=== PATIENT | male | born 1945 | race Caucasian/White ===

== ENCOUNTER 2017-04-29 10:44 | Observation (INO) | payer OTHER ==
--- NOTE | 2017-04-29 11:12 | CPEKG ---
Heart Rate: 61 RR Interval: 984 P-R Interval: 232 QRSD Interval: 94 QT Interval: 444 QTC Interval: 448 P [place]: 1 QRS [place]: -5 T Wave [place]: -2 EKG Severity - ABNORMAL ECG - EKG Impression: SINUS RHYTHM EKG Impression: FIRST DEGREE AV BLOCK EKG Impression: LVH BY VOLTAGE EKG Impression: BORDERLINE T ABNORMALITIES, INFERIOR LEADS Electronically Signed By: Dl Mota 29-Apr-2017 15:23:51
[2017-04-29 12:24] LABS: PLATELET COUNT 159 10^3/uL (150-400)
--- NOTE | 2017-04-29 12:35 | EDPHY ---
H & P Stated Complaint: R sided CP on waking; worse w/movemnet;shoveled snow yesterday Time Seen by Provider: 04/29/17 12:27 - Personal History Current Tetanus Diphtheria and Acellular Pertussis (TDAP): Yes Tetanus Vaccine Date: 2013 - Medical/Surgical History Hx Asthma: No Hx Chronic Respiratory Disease: No Hx Diabetes: No Hx Cardiac Disease: Yes Hx Renal Disease: No Hx Cirrhosis: No Hx Alcoholism: No Hx HIV/AIDS: No Hx Splenectomy or Spleen Trauma: No Other PMH: PMH: HTN,STENT X2,. 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 - Social History Smoking Status: Former smoker Constitutional: Initial Vital Signs Temperature (C) 36.5 C 04/29/17 10:47 Heart Rate 69 04/29/17 10:47 Respiratory Rate 18 04/29/17 10:47 Blood Pressure 110/70 04/29/17 10:47 O2 Sat (%) 97 04/29/17 10:47 O2 Delivery Mode Room Air Allergies/Adverse Reactions: No Known Allergies Allergy (Verified 04/29/17 10:46) Home Medications: Medication Instructions Recorded Aspirin EC [Aspirin EC 81 mg (*)] 81 mg PO DAILY 04/29/17 Metoprolol Succinate Xr [Toprol Xl 50 mg PO DAILY 04/29/17 50 mg (*)] Niacin 1,000 mg PO 04/29/17 Omeprazole Magnesium [Prilosec Otc] 04/29/17 Simvastatin [Zocor] 20 mg PO 04/29/17 metFORMIN HCL [Glucophage 500 mg 500 mg PO 04/29/17 (*)] Medical Decision Making ED Course/Re-evaluation: CHIEF COMPLAINT: Right-sided chest pressure HISTORY OF PRESENT ILLNESS: 71-year-old gentleman with history of 2 or 3 stents he is not sure. His for stenting was several years ago in [place] 2nd procedure was here with Dr. Valdovinos a couple years ago. Both of those times he presented with chest pressure and has similar fashion to today. Yesterday he was shoveling some snow and he feels like the pressure today is a little more related to movement however he did take a couple of nitro which she never uses and it did help resolve some of the pain. Additionally, he denies any shortness of breath nausea vomiting or lightheadedness. He denies any near syncope. This pressure occurred while he was driving at rest. His is quite concerned since he never takes nitro except when he needed the prior catheterizations. REVIEW OF SYSTEMS: A 10 point review of systems was performed and is negative with the exception of the elements mentioned in the history of present illness. PHYSICAL EXAM: HR, BP, O2 Sat, RR. Temp noted General Appearance: Alert, well hydrated, appropriate, and non-toxic appearing. Head: Atraumatic without scalp tenderness or obvious injury Eyes: Pupils equal, round, reactive to light and accommodation, EOMI, no trauma , no injection. Ears: Clear bilaterally, no perforation, normal landmarks Nose: Atraumatic, no rhinorrhea, clear. Throat: There is no erythema or exudates, no lesions, normal tonsils, mucus membranes moist. Neck: Supple, 2+ carotid upstroke, nontender, no lymphadenopathy. Respiratory: No retractions, no distress, no wheezes, and no accessory muscle use. Lungs are clear to auscultation bilaterally. Cardiovascular: Regular rate and rhythm, no murmurs, rubs, or gallops. Bilateral carotid, radial, dorsalis pedis, and posterior tibial pulses intact. Good capillary refill all extremities. Gastrointestinal: Abdomen is soft, nontender, non-distended, no masses, no rebound, no guarding, no peritoneal signs. Musculoskeletal: Normal active ROM of all extremities, atraumatic. Neurological: Alert, appropriate, and interactive. The patient has normal DTRs and non-focal cranial nerves, motor, sensory, and cerebellar exam. Skin: No rashes, good turgor, no nodules on palpation. Past medical history: Coronary artery disease, hypertension Past surgical history: 2 or 3 stents Family history: Coronary artery disease Social history: , retired, does not abuse tobacco drugs or alcohol DIAGNOSTICS/PROCEDURES/CRITICAL CARE TIME: The 12 lead EKG was interpreted by myself. See hard copy and/or "tracemaster" electronic copy for interpretation. Sinus rhythm with a first-degree AV block but no evidence of any significant ischemia. He does have some inverted T- waves in the inferior leads and I am ascertaining whether not that is new or old. DIFFERENTIAL DIAGNOSIS: The differential diagnosis for the patient's chest pain included but was not limited to [myocardial ischemia, pulmonary embolus, chest wall pain, pleural inflammation, and pulmonary infectious causes.] MEDICAL DECISION MAKING: Although this patient seems to be able to somewhat reproduces right-sided chest pressure with movement and he was shoveling snow yesterday both the patient, his , and myself were concerned because his prior to stenting procedures presented in a similar fashion with chest pressure like this. He also developed pressure today while at rest. Nitroglycerin resolved the pain. Laboratory studies are pending, chest x-ray pending, EKG shows some inferior Q-waves and T-wave abnormalities in waiting for old EKG. I will admit him to the hospitalist PCU for further evaluation by [facility]. - Data Points Laboratory Results: Laboratory Results 04/29/17 12:04/29/17 12:04/29/17 04/29/17 04/29/17 12: 12: 12:01 WBC 8.15 10^3/uL 10^3/uL (3.80-9.50) RBC 4.84 10^6/uL 10^6/uL (4.40-6.38) Hgb 16.6 g/dL g/dL (13.7-17.5) Hct 45.9 % % (40.0-51.0) MCV 94.8 fL fL (81.5-99.8) MCH 34.3 pg H pg (27.9-34.1) MCHC 36.2 g/dL g/dL (32.4-36.7) RDW 13.2 % % (11.5-15.2) Plt Count 159 10^3/uL 10^3/uL (150-400) MPV 10.5 fL fL (8.7-11.7) Neut % (Auto) 60.3 % % (39.3-74.2) Lymph % (Auto) 26.6 % % (15.0-45.0) Harper % (Auto) 9.0 % % (4.5-13.0) Eos % (Auto) 3.3 % % (0.6-7.6) Baso % (Auto) 0.6 % % (0.3-1.7) Nucleat RBC Rel Count 0.0 % % (0.0-0.2) Absolute Neuts (auto) 4.91 10^3/uL 10^3/uL (1.70-6.50) Absolute Lymphs (auto) 2.17 10^3/uL 10^3/uL (1.00-3.00) Absolute Monos (auto) 0.73 10^3/uL 10^3/uL (0.30-0.80) Absolute Eos (auto) 0.27 10^3/uL 10^3/uL (0.03-0.40) Absolute Basos (auto) 0.05 10^3/uL 10^3/uL (0.02-0.10) Absolute Nucleated RBC 0.00 10^3/uL 10^3/uL (0-0.01) Immature Gran % 0.2 % % (0.0-1.1) Immature Gran # 0.02 10^3/uL 10^3/uL (0.00-0.10) D-Dimer Pending Sodium 142 mEq/L mEq/L (135-145) Potassium 4.3 mEq/L mEq/L (3.5-5.2) Chloride 105 mEq/L mEq/L (97-110) Carbon Dioxide 24 mEq/l mEq/l (22-31) Anion Gap 13 mEq/L mEq/L (8-16) BUN 19 mg/dL mg/dL (7-23) Creatinine 1.1 mg/dL mg/dL (0.7-1.3) Estimated GFR > 60 Glucose 104 mg/dL H mg/dL (70-100) Calcium 9.8 mg/dL mg/dL (8.5-10.4) Total Bilirubin 0.7 mg/dL mg/dL (0.1-1.4) AST 33 IU/L IU/L (17-59) ALT 41 IU/L IU/L (21-72) Alkaline Phosphatase 66 IU/L IU/L (38-126) Troponin I Pending NT-Pro-B Natriuret Pep Pending Total Protein 6.8 g/dL g/dL (6.3-8.2) Albumin 4.3 g/dL g/dL (3.5-5.0) Departure - Departure Disposition: [facility] Inpatient Acute Clinical Impression: Acute coronary syndrome Condition: Fair Referrals: Unknown,Unknown [Unknown] - As per Instructions
[2017-04-29] MEDS ORDERED: ONDANSETRON 4 MG/2 ML VIAL IVP PRN (15:01)
[2017-04-29] MEDS ORDERED: ACETAMINOPHEN 325 MG TAB PO PRN (15:01)
[2017-04-29] MEDS ORDERED: ONDANSETRON DISINTEGRATING 4 MG TAB PO PRN (15:01)
--- NOTE | 2017-04-29 16:49 | PDGENHP ---
History and Physical - Chief Complaint Acute chest pain - History of Present Illness Senior Analytical Chemist: Dr. Isai Valdovinos HPI: 71 yo M p/w acute chest pain characterized as similar to his prior anginal pain, located in right chest, w/ onset on the AM of presentation, occurring at rest while driving. Duration has been persistent thereafter, exacerbated by movement (RUE) and positional, and mildly alleviated by 2 SLN as well as palpation of the R pectoralis. On the day prior to presentation, he was shoveling his driveway and did have some associated shortness of breath, but no overt chest pain. His SOB resolved w/ rest. He regularly get chest pain exertionally w/ racquet ball, and he plays through it, with it resolving while he continues to exercise. He took his home Rx on day of presentation. History Information - Allergies/Home Medication List Allergies/Adverse Reactions: No Known Allergies Allergy (Verified 04/29/17 10:46) Home Medications: Aspirin EC [Aspirin EC 81 mg (*)] 81 mg PO DAILY 04/29/17 [Last Taken 04/28/17] Atorvastatin Calcium [Lipitor 20 mg (*)] 20 mg PO HS 04/29/17 [Last Taken ] Cyanocobalamin [Vitamin B12 (*)] 1,000 mcg PO DAILY 04/29/17 [Last Taken Unknown ] Herbals/Supplements -Info Only 1 ea PO DAILY 04/29/17 [Last Taken 04/29/17] Isosorbide Mononitrate [Imdur 30 mg (*)] 30 mg PO DAILY 04/29/17 [Last Taken ] Metoprolol Succinate Xr [Toprol Xl 50 mg (*)] 50 mg PO BID 04/29/17 [Last Taken 04/29/17] Multivitamins [Multivitamin (*)] 1 each PO DAILY 04/29/17 [Last Taken 04/29/17] Niacin 1,000 mg PO HS 04/29/17 [Last Taken 04/28/17] Omeprazole Magnesium [Prilosec Otc] 20 mg PO HS 04/29/17 [Last Taken 04/28/17] Psyllium Husk (with Sugar) [Metamucil Packet] 3 each PO HS 04/29/17 [Last Taken 04/28/17] Vit A/Vit C/Vit E/Zinc/Copper [Preservision Areds Softgel] 1 each PO BID [Last Taken 04/29/17] metFORMIN HCL [Glucophage 500 mg (*)] 500 mg PO DAILY 04/29/17 [Last Taken 04/29] I have personally reviewed and updated: family history, medical history, social history, surgical history - Past Medical History coronary artery disease (s/p RCA stent 2007, LCx stent 2013, cath w/ OM1 non- intervenable disease 2014, normal nuc stress 09/2015 and started on long-acting nitrate at that time), hypertension, hyperlipidemia Additional medical history: Moderate , bicuspid valve - Surgical History Additional surgical history: numerous cardiac caths. appty. ccy. c3-c4. left eye cataract - Family History Additional family history: mother CHF, father DM2 - Social History Smoking Status: Former smoker Alcohol Use: None Drug Use: None Additional social history: exercises regularly, no weight lifting Review of Systems Review of Systems: ROS: 10pt was reviewed & negative except for what was stated in HPI & below Cardiac: Reports: chest pain Respiratory: Reports: shortness of breath Physical Exam Physical Exam: Temp Pulse Resp BP Pulse Ox 36.6 C 60 14 119/80 93 04/29/17 15:54 04/29/17 15:54 04/29/17 15:54 04/29/17 15:54 04/29/17 15:54 Constitutional: no apparent distress, appears nourished, not in pain Eyes: PERRL, anicteric sclera, EOMI Ears, Nose, Mouth, Throat: moist mucous membranes, hearing normal, ears appear normal, no oral mucosal ulcers Cardiovascular: systolic murmur (I/ at sternum), No irregularly irregular, No tachycardia, No edema Respiratory: no respiratory distress, no rales or rhonchi, clear to auscultation Gastrointestinal: normoactive bowel sounds, soft, non-tender abdomen, no palpable masses Skin: warm, normal color, No rash Musculoskeletal: other (mild pain elicited in R chest w/ anterior abduction of RUE, full ROM RUE w/o pain on lateral and posterior abduction) Neurologic: AAOx3, sensation intact bilaterally, No weakness Psychiatric: interacting appropriately, not anxious, not encephalopathic, thought process linear Lab Data & Imaging Review 04/29/17 12:01 04/29/17 12:01 WBC 8.15 10^3/uL (3.80-9.50) 04/29/17 12:01 RBC 4.84 10^6/uL (4.40-6.38) 04/29/17 12:01 Hgb 16.6 g/dL (13.7-17.5) 04/29/17 12:01 Hct 45.9 % (40.0-51.0) 04/29/17 12:01 MCV 94.8 fL (81.5-99.8) 04/29/17 12:01 MCH 34.3 pg (27.9-34.1) H 04/29/17 12:01 MCHC 36.2 g/dL (32.4-36.7) 04/29/17 12:01 RDW 13.2 % (11.5-15.2) 04/29/17 12:01 Plt Count 159 10^3/uL (150-400) 04/29/17 12:01 MPV 10.5 fL (8.7-11.7) 04/29/17 12:01 Neut % (Auto) 60.3 % (39.3-74.2) 04/29/17 12:01 Lymph % (Auto) 26.6 % (15.0-45.0) 04/29/17 12:01 [place] % (Auto) 9.0 % (4.5-13.0) 04/29/17 12:01 Eos % (Auto) 3.3 % (0.6-7.6) 04/29/17 12:01 Baso % (Auto) 0.6 % (0.3-1.7) 04/29/17 12:01 Nucleat RBC Rel Count 0.0 % (0.0-0.2) 04/29/17 12:01 Absolute Neuts (auto) 4.91 10^3/uL (1.70-6.50) 04/29/17 12:01 Absolute Lymphs (auto) 2.17 10^3/uL (1.00-3.00) 04/29/17 12:01 Absolute Monos (auto) 0.73 10^3/uL (0.30-0.80) 04/29/17 12:01 Absolute Eos (auto) 0.27 10^3/uL (0.03-0.40) 04/29/17 12:01 Absolute Basos (auto) 0.05 10^3/uL (0.02-0.10) 04/29/17 12:01 Absolute Nucleated RBC 0.00 10^3/uL (0-0.01) 04/29/17 12:01 Immature Gran % 0.2 % (0.0-1.1) 04/29/17 12:01 Immature Gran # 0.02 10^3/uL (0.00-0.10) 04/29/17 12:01 D-Dimer 0.28 ug/mLFEU (0.00-0.50) 04/29/17 12:01 Sodium 142 mEq/L (135-145) 04/29/17 12:01 Potassium 4.3 mEq/L (3.5-5.2) 04/29/17 12:01 Chloride 105 mEq/L (97-110) 04/29/17 12:01 Carbon Dioxide 24 mEq/l (22-31) 04/29/17 12:01 Anion Gap 13 mEq/L (8-16) 04/29/17 12:01 BUN 19 mg/dL (7-23) 04/29/17 12:01 Creatinine 1.1 mg/dL (0.7-1.3) 04/29/17 12:01 Estimated GFR > 60 04/29/17 12:01 Glucose 104 mg/dL (70-100) H 04/29/17 12:01 Calcium 9.8 mg/dL (8.5-10.4) 04/29/17 12:01 Total Bilirubin 0.7 mg/dL (0.1-1.4) 04/29/17 12:01 AST 33 IU/L (17-59) 04/29/17 12:01 ALT 41 IU/L (21-72) 04/29/17 12:01 Alkaline Phosphatase 66 IU/L (38-126) 04/29/17 12:01 Troponin I < 0.012 ng/mL (0.000-0.034) 04/29/17 12:01 NT-Pro-B Natriuret Pep 365 pg/mL (0-125) H 04/29/17 12:01 Total Protein 6.8 g/dL (6.3-8.2) 04/29/17 12:01 Albumin 4.3 g/dL (3.5-5.0) 04/29/17 12:01 Visualized and Interpreted Chest x-ray results: Yes Chest X-Ray results: other (atelectasis) Visualized and Interpreted EKG results: Yes EKG Interpretation: Positive for: other (NSR, 1st deg AVB, TWI III) Assessment & Plan Assessment: 71 yo M p/w acute chest pain in setting of known CAD Plan: # Chest pain. Acute, new problem, further w/u indicated. High risk patient given known CAD w/ stringy OM1 disease, exertional symptoms, now occurring at rest, concerning for unstable angina - d/w Dr. Valdovinos, he has recommended eval for potentially intervenable lesion w/ stress test and Echo, since we know that patient has small vessel disease from prior that was not amenable to stenting (DC Summary by Dr. Ap Zaragoza reviewed, 09/09/15, medical mgmt recommended at that time w/ Imdur) - cont home Rx, will consider cath in AM if nuc images demonstrate ischemia, keep NPO after MN - physical exam suggestive of MSK cause, so will give NSAIDs tomorrow if above negative # Atelectasis. Acute, likely from splinting in setting of pain # Moderate . Get Echo to eval for progression, which may account for his exertional sx Diet. Cardiac, NPO MN PPx. High risk, lovenox 40 Code. Full Dispo. ADD 04/30, pending w/u of above.
[2017-04-29] MEDS: PRESERVISION AREDS2 FORMULA EYE VIT 1 EACH PO SCH (18:48)
[2017-04-29] MEDS: METOPROLOL SUCCINATE XR 50 MG TAB PO SCH (20:26)
[2017-04-29] MEDS ORDERED: PSYLLIUM METAMUCIL 1 PKT PO SCH (21:00)
[2017-04-29] MEDS ORDERED: NIACIN 500 MG TAB PO SCH (21:00)
[2017-04-29] MEDS ORDERED: NIACIN 1000 MG PO SCH (21:00)
[2017-04-29] MEDS ORDERED: PANTOPRAZOLE SODIUM 40 MG TAB PO SCH (21:00)
[2017-04-29] MEDS ORDERED: ATORVASTATIN CALCIUM 20 MG TAB PO SCH (21:00)
[2017-04-29] MEDS ORDERED: NON-FORMULARY NEW DRUG (Vit A/Vit C/Vit E/Zinc/Copper [Preservision Areds Softgel] 1 EACH) PO SCH (21:00)
--- NOTE | 2017-04-29 21:29 | PDCARPN ---
Cardiology Progress Note Assessment/Plan: The patient is a 71-year-old male who is well known to me from both the inpatient and outpatient settings. He has a history of CAD with prior PCI's. He also has a bicuspid aortic valve with moderate stenosis. I last saw him in the office on March 12, 2017. That office note has been placed on the physical chart for information purposes. He has a long-standing history of chest discomfort with both typical and atypical features. When I saw him in March, he described substernal chest pressure which would occur at the beginning of exercise sessions such as playing racDakim. However, if he continued his activity, the discomfort would subside and he could continue exercising without significant limitations. This was consistent with the phenomenon of "warm-up angina". He underwent PCI of RCA in 2007 and PCI of the distal circumflex in 2013. He has had several cardiac catheterizations which also demonstrated branch vessel disease involving subtotal occlusion a small first obtuse marginal branch (too small to be amenable to percutaneous or surgical revascularization), and significant ostial CAD of small branch vessels such as a diagonal and ramus intermedius. Attempts at controlling his anginal symptoms have included initiation of long-acting nitrate therapy. In the past, consideration was given to the use of ranolozine, however, this proved to be cost prohibitive and he never initiated it. He now presents with right-sided chest discomfort which was noted as he was driving to work in [place] yesterday. There was some exacerbation with movement of his right upper extremity. He had been shoveling snow the previous day. Because of his cardiac history and persistence of his symptoms, he presented to the emergency room for evaluation. His initial troponin and ECG are unremarkable. He is now admitted for observation and serial cardiac enzymes. - Echocardiography tomorrow to assess the current status of his bicuspid aortic valve and moderate aortic stenosis. His last echocardiogram was in 2015 and demonstrated a mean aortic valve gradient of 12 mmHg. - If his troponin levels remain normal overnight, will plan for an exercise treadmill test with nuclear perfusion imaging tomorrow. If he has a troponin elevation overnight, would switch our ischemic evaluation to a cardiac catheterization. 04/29/17 21:20 Subjective: Some mild residual right sided chest discomfort. Reviewed/Discussed With: family, hospitalist Objective: Vital Signs (8 Hrs) Temp Pulse Resp BP Pulse Ox 04/29/17 20:26 66 114/74 04/29/17 20:00 36.5 C 59 L 16 114/74 91 L 04/29/17 15:54 36.6 C 60 14 119/80 93 04/29/17 15:10 37.0 C 51 L 16 133/80 H 95 Intake/Output (24 Hrs) 04/28/17 04/29/17 04/30/17 05:59 05:59 05:59 Intake Total 240 Balance 240 Intake: Oral (ml) 240 Other: Weight 86.1 kg Number of Voids Toilet 1 Result Diagrams: 04/29/17 12:01 04/29/17 12:01 Cardiac Labs: Cardiac Lab Results (72 Hrs) 04/29/17 17:21 Troponin I < 0.012 - Physical Exam Constitutional: WDWN, healthy appearing, no apparent distress Eyes: anicteric sclera Ears, Nose, Mouth, Throat: moist mucous membranes Cardiovascular: regular rate and rhythm, systolic murmur Respiratory: clear to auscultate bilat Gastrointestinal: normoactive bowel sounds, no tenderness, no masses Skin: no edema Neurologic: AAOx3 Psychiatric: not anxious ICD10 Worksheet Patient Problems: Problems Problem Status Onset Acute coronary syndrome Acute 23-polyvalent pneumococcal polysaccharide vaccine indication of diabetes in patient 6 to 64 years of age Acute Chest pain Acute Chest pain at rest Acute Coronary artery disease Acute Diabetes Acute HTN (hypertension) Acute Hyperlipidemia LDL goal < 100 Acute
[2017-04-30 04:48] LABS: PLATELET COUNT 140 10^3/uL (150-400)
[2017-04-30] MEDS ORDERED: ENOXAPARIN 40 MG/0.4 ML SYR SC SCH (09:00)
[2017-04-30] MEDS ORDERED: CYANO/VITAMIN B12 1000 MCG TAB PO SCH (09:00)
[2017-04-30] MEDS ORDERED: Herbals/Supplements -Info Only PO SCH (09:00)
[2017-04-30] MEDS ORDERED: ASPIRIN EC 81 MG TAB PO SCH (09:00)
[2017-04-30] MEDS ORDERED: MULTIVITAMINS 1 EACH TAB PO SCH (09:00)
[2017-04-30] MEDS ORDERED: ISOSORBIDE MONONITRATE 30 MG TAB.SR PO SCH (09:00)
[2017-04-30 09:49] VITALS: O2SAT 92
--- NOTE | 2017-04-30 12:39 | ASMTCMCOM ---
CM Note CM Note Notes: 04/30/2017 Case Management Note Discussed in rounds. There are no case management d/c needs identified d/t pt age, marital status and activity levels prior to admission. There are no PT or OT evals at this time. Case Management d/c poc: Independent with follow up as directed. Case Management available if needs change. Date Signed: 04/30/2017 12:39 PM Electronically Signed By:Janel Mcmullen RN
--- NOTE | 2017-04-30 13:00 | ECHO ---
[email or web address] [address] [address] Main: [phone] Fax: Transthoracic Echocardiogram Name: CARLO RECINOS MR#: [id number] Study Date: 04/30/2017 Study Time: 09:19 AM Date of : 1945 Age: 71 year(s) Height: 177.8 cm (70 in.) Weight: 86.64 kg (191 lb.) BSA: 2.05 m2 Gender: Male Examination: Echo Indication: Known Bicuspid Valve Image Quality: Contrast: Requested by: Joaquin Justice BP: 127 mmHg/79 mmHg Heart Rate: Rhythm: Normal sinus rhythm with ectopy Indication: Known Bicuspid Valve Procedure Staff Mask Designer: Jaxon Sosa Reading Physician: Isai Valdovinos Requesting Provider: Conclusions: Normal size left ventricle. No LV hypertrophy. EF is 66 %. No regional wall motion abnormality. Mild mitral valve leaflet calcification is present. Trivial mitral valve regurgitation. Severe aortic valve calcification is present. Bicuspid aortic valve. There is severe aortic valve calcification with a Max Peak Gradient of 45 mmHg and a mean gradient of 29 mmHg. The previous exam of 11/04/2013 had a peak gradient of 32 mmHg and a mean gradient of 15 mmHg.. Trivial to mild tricuspid valve regurgitation. The pulmonary artery pressure is normal. The ascending aorta measures 3.9 cm.. No pericardial effusion. Compared to the previous exam of 11/04/2013 there has been a increase in the in the mean and peak gradient.. Measurements: Chambers Valvular Assessment AV/MV Valvular Assessment TV/PV Normal Normal Normal Name Value Range Name Value Range Name Value Range Ao Monet (MM): 5.0 cm (2.2 cm-3.7 AV Vmax: 3.31 m/s (1 m/s-1.7 TR Vmax: 2.40 mm/s ( - ) cm) m/s) TR PGmax: 23 mmHg ( - ) IVSd (2D): 1.1 cm (0.6 cm-1.1 AV maxP mmHg ( - ) syst. PAP: 28 mmHg ( - ) cm) AV meanP mmHg ( - ) PV Vmax: 0.65 m/s (0.6 m/s-0.9 LVDd (2D): 5.0 cm (4.2 cm-5.9 JACOB (VTI): 0.7 cm ( - ) m/s) cm) MV E Vmax: 0.81 m/s ( - ) PV PGmax: 2 mmHg ( - ) LVDs (2D): 3.2 cm (2.1 cm-4 MV A Vmax: 0.25 m/s ( - ) cm) MV E/A: 3.24 ( - ) Patient: CARLO RECINOS Study Date: 04/30/2017 Page 1 of 2 09:19 AM LVPWd (2D): 1.1 cm (0.6 cm-1 cm) LVOTd 2.2 cm 2.2 cm mm LVEF (2D): 66 (>=54 %) Continued Measurements: Chambers Valvular Assessment TV/PV Name Value Name Value LADs Lon.7 cm CVP (est.): 5 mmHg LA Area: 16.7 cm2 Findings: Left Ventricle: Normal size left ventricle. No LV hypertrophy. Normal global systolic LV function. EF is 66 %. No regional wall motion abnormality. Normal diastolic LV function. Right Ventricle: Normal size right ventricle. Left Atrium: The left atrium is normal in size. Right Atrium: The right atrium is normal in size. Mitral Valve: Mild mitral valve leaflet calcification is present. Trivial mitral valve regurgitation. Aortic Valve: Severe aortic valve calcification is present. Bicuspid aortic valve. There is severe aortic valve calcification with a Max Peak Gradient of 45 mmHg and a mean gradient of 29 mmHg. The previous exam of 11/04/2013 had a peak gradient of 32 mmHg and a mean gradient of 15 mmHg.. Tricuspid Valve: The tricuspid valve appears normal. Trivial to mild tricuspid valve regurgitation. The pulmonary artery pressure is normal. Pulmonic Valve: The pulmonic valve is normal in appearance and function. Aorta: The ascending aorta measures 3.9 cm.. Pericardium: No pericardial effusion. Exam Comments: Compared to the previous exam of 11/04/2013 there has been a increase in the in the mean and peak gradient.. (No Signature Object) Patient: CARLO RECINOS Study Date: 04/30/2017 Page 2 of 2 09:19 AM [id number]
[2017-04-30 13:15] VITALS: RESP 14; TEMP 97.6
--- NOTE | 2017-04-30 13:22 | CPR ---
[f rep st] NONINVASIVE CARDIAC PROCEDURE REPORT DATE OF PROCEDURE: 04/30/2017 PROCEDURE PERFORMED: Nuclear treadmill stress test. ORDERING PHYSICIAN: Isai Valdovinos MD. REASON FOR TEST: 1. Known coronary artery disease with PCI. 2. Chest pain. BASELINE: Resting EKG shows a sinus rhythm with a ventricular rate of 71 with occasional PVC. He estrella s a first-degree AV block. Resting blood pressure 108/64, resting heart rate 70. STRESS: He exercised according to the Ed protocol for a total of 8 minutes, reaching his predicte d 85% heart rate of 125. Blood pressure 124/60. Frequent PVCs, including quadrigeminy, bigeminy, an d occasional couplets. He remained asymptomatic throughout the test. At approximately 5 minutes int o the exercise, there was noted inferolateral ST depression. Test stopped due to maximal effort. Ma ximal blood pressure 168/70. Maximum heart rate 125. Peak MET level 8.9. RECOVERY: He did spontaneously recover. He had no chest pain, shortness of breath, or other anginal symptoms. He continued to have PVCs until his heart rate was down to 80, then occasional PVC. At t his time, he currently is stable for imaging. This test was reviewed with Dr. Isai Valdovinos. At this time, he currently is stable. /[id number]/MODL
[2017-04-30] MEDS: METOPROLOL SUCCINATE XR 50 MG TAB PO SCH (13:51)
[2017-04-30 13:52] VITALS: BP 117/82; PULSE 70
[2017-04-30] MEDS: PRESERVISION AREDS2 FORMULA EYE VIT 1 EACH PO SCH (15:01)
--- NOTE | 2017-04-30 15:18 | PDCARPN ---
Cardiology Progress Note Assessment/Plan: Coronary Artery Disease: No further chest pain overnight. Serial troponin levels all normal. Exercise treadmill test with nuclear imaging performed earlier today. Patient exercised 8 minutes of the Ed protocol without chest pain. He did have ST segment changes. However, the nuclear perfusion images were normal with no evidence of ischemia or infarction. Bicuspid Aortic Valve with Aortic Stenosis: Echocardiogram today demonstrates a peak/mean aortic valve gradient of 45/29 mmHg. This is moderately increased compared to a study performed in 2014 but has not reached the point where valvular heart surgery needs to be considered. Hypertension: Adequately controlled. Hyperlipidemia: The patient was switched from simvastatin to atorvastatin at his March office visit with me. He has follow up with me in early June to assess his response. Premature Ventricular Contractions: Longstanding h/o several thousand PVCs/day. Asymptomatic. Disposition: Okay for discharge from my standpoint. He will followup with me on June 11. Details entered into [facility] discharge plan. 04/30/17 15:28 Subjective: No complaints. Objective: Vital Signs (8 Hrs) Temp Pulse Resp BP Pulse Ox 04/30/17 13:51 70 117/82 H 04/30/17 13:07 36.4 C 71 14 104/48 L 92 04/30/17 09:47 36.2 C 58 L 16 131/78 H 92 Intake/Output (24 Hrs) 04/29/17 04/30/17 05/01/17 05:59 05:59 05:59 Intake Total 390 Output Total 300 Balance 90 Intake: Oral (ml) 390 Output: Urine (ml) 300 Toilet 300 Other: Weight 86.8 kg Intake Quantity Yes Sufficient Number of Voids Toilet 1 Result Diagrams: 04/30/17 03:34 04/30/17 03:34 Cardiac Labs: Cardiac Lab Results (72 Hrs) 04/30/17 04/29/17 03:34 17:21 Troponin I < 0.012 < 0.012 - Physical Exam Constitutional: WDWN, no apparent distress Eyes: anicteric sclera Ears, Nose, Mouth, Throat: moist mucous membranes Cardiovascular: regular rate and rhythm, systolic murmur Respiratory: clear to auscultate bilat Gastrointestinal: normoactive bowel sounds, no tenderness, no masses Skin: no edema Neurologic: AAOx3 Psychiatric: not anxious ICD10 Worksheet Patient Problems: Problems Problem Status Onset Acute coronary syndrome Acute 23-polyvalent pneumococcal polysaccharide vaccine indication of diabetes in patient 6 to 64 years of age Acute Chest pain Acute Chest pain at rest Acute Coronary artery disease Acute Diabetes Acute HTN (hypertension) Acute Hyperlipidemia LDL goal < 100 Acute
--- NOTE | 2017-04-30 17:28 | ASDISCHSUM ---
Discharge Information Plan Status:Home with No Needs Medically Cleared to Leave:04/29/2017 Discharge Date:04/30/2017 04:16 PM CM D/C Disposition:Home, Routine, Self-Care ADT D/C Disposition:Home, Routine, Self-Care Projected Discharge Date:04/30/2017 04:16 PM Transportation at D/C: Discharge Delay Reason: Follow-Up Date:04/30/2017 04:16 PM Discharge Slot: Final Diagnosis: Placement Information Patient Contact Information Contact Name:SAURABH Relationship: Address:[address] [place] [address] City:[place] Alternate Phone: [facility]/Zip Code:[place] [address] Email: Financial Information Financial Class:Medicare Advantage Plans Primary Plan Desc:[facility] ADVANTAGE PLANS Primary Plan Number:[id number] Secondary Plan Desc: Secondary Plan Number: Assessment Information BC CM Progress Note CM Note CM Note Notes: 04/30/2017 Case Management Note Discussed in rounds. There are no case management d/c needs identified d/t pt age, marital status and activity levels prior to admission. There are no PT or OT evals at this time. Case Management d/c poc: Independent with follow up as directed. Case Management available if needs change. Date Signed: 04/30/2017 12:39 PM Electronically Signed By:Janel Mcmullen RN Intervention Information Intervention Type:*WAN-Signed Date of Service:04/30/2017 11:17 AM Patient Type:Observation Staff Member:Susan Manuel Hours: Discipline: Severity: Comment:
--- NOTE | 2017-04-30 19:02 | PDDCSUM ---
Discharge Summary Discharge Summary: DISCHARGE SUMMARY FOLLOW-UP ITEMS: Outpatient follow-up appoint with Dr. Isai Valdovinos DATE OF ADMISSION: 04/29/2017 DATE OF DISCHARGE: 04/30/2017 DISCHARGE DIAGNOSES: 1. Acute chest pain 2. Suspected costochondritis 3. Chronic coronary artery disease 4. Aortic stenosis CONSULTATIONS: Cardiology PROCEDURES / IMAGING: Nuclear medicine stress test demonstrating no inducible ischemia, echocardiogram demonstrating mild increase in aortic stenosis CHIEF COMPLAINT: Acute chest pain SUBJECTIVE: Patient continues to feel reproducible chest discomfort on the right side PHYSICAL EXAM ON DISCHARGE: Systolic blood pressure is 110-130, heart rate 60, afebrile overnight, alert awake oriented x3, not tachypneic LABS ON DISCHARGE: Troponin negative x3, D-dimer negative HOSPITAL COURSE BY PROBLEM: The patient presented with acute chest pain was ruled out for acute coronary syndrome with negative troponin x3, no ischemic changes on EKG, ruled out for obstructive coronary disease with a normal nuclear medicine stress test. Most likely cause of his chest discomfort is atypical musculoskeletal pain, costochondritis in the setting of recent snow shoveling. The pain is reproducible on exam, is located in the right chest which he was exercising on the day prior to presentation, and I have advised the patient to utilize ice, heat, Tylenol, low-dose NSAIDs if needed. He also had his aortic stenosis evaluated with echocardiogram, it demonstrated bicuspid aortic valve with moderate increase in the degree of valvular gradient compared to the study performed in 2014, but is not reached appoint with valvular heart surgery needs to be considered. He will follow up with Dr. Isai Valdovinos. DISCHARGE MEDICATIONS: Please see official discharge medication reconciliation sheet in chart , continue home medications without changes. DISCHARGE INSTRUCTIONS: Please follow up with Dr. Valdovinos.
== END 2017-04-30 16:16 | disposition home or self-care (01) ==
LOC: F2W 15:48
PROVIDERS: ADMIT Student in an Organized Health Care Education/Training Program; ATTEND Student in an Organized Health Care Education/Training Program
DX: R07.9 Chest pain, unspecified (principal); R06.09 Other forms of dyspnea; I35.2 Nonrheumatic aortic (valve) stenosis with insufficiency; Q23.1 Congenital insufficiency of aortic valve; I25.10 Atherosclerotic heart disease of native coronary artery without angina pectoris; J98.11 Atelectasis; E11.9 Type 2 diabetes mellitus without complications; I10 Essential (primary) hypertension; E78.5 Hyperlipidemia, unspecified; Z79.82 Long term (current) use of aspirin; Z87.891 Personal history of nicotine dependence; Z95.5 Presence of coronary angioplasty implant and graft
CPT/HCPCS: 71046; 78452; 93005; 93017; 93306; A9500; G0378; J1650